=== PATIENT | female | born 1960 | race Caucasian/White ===

== ENCOUNTER 2018-05-11 15:00 | Emergency (ER) | payer MEDICARE, OTHER ==
[~2018-05-11] VITALS: Ht 167.6 cm; Wt 95.3 kg
[~2018-05-11 15:00] MED LIST: ADVAIR HFA 230M12 GM INH; AMITRIPTYLINE H25 M2 PO; AZITHROMYCIN 2250 MG PO; BACTRIM DS TAB1 EACH PO; CELEXA10 MG PO; CENTRUM SILVER1 EAC4 PO; L-THYROXINE; MACROBID 100 M100 M3 PO; MAGOX 400400 MG PO; NORCO 5-325 TA1 EACH PO; PHENERGAN 25 MG25 M1 PO; PRINIVIL20 MG PO; PROAIR HFA8.5 GM PO; SYNTHROID100 MCG PO; WELCHOL 625 MG625 MG PO; ZOFRAN ODT4 MG PO
[2018-05-11] MEDS ORDERED: ZANTAC 150MG T150 MG PO (15:05)
[2018-05-11 17:41] VITALS: BP 147/91
--- NOTE | 2018-05-12 13:54 | EKG ---
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 Bledsoe : 1960 Requested By: Rosalia Bond Order Number: [id number] MD: Ronnie Womack Measurements Intervals [place] Rate: 116 P: 68 OR: 141 QRS: 36 QRSD: 95 T: 40 QT: 318 QTc: 442 Interpretive Statements Sinus tachycardia Artifact in lead(s) I,III,aVR,aVL,aVF and baseline wander in lead(s) V1,V2,V4,V5,V6 Compared to ECG 05/22/2016 20:26:24 No significant changes Electronically Signed On 05-12-2018 13:54:04 CDT by Ronnie Womack [email or web address] <ELECTRONICALLY SIGNED> By: Ronnie Womack MD, FAC 05/12/18 1354 1511 1511 Ronnie Womack MD, FAC /EPI
== END 2018-05-11 17:41 | disposition home or self-care (01) ==
LOC: M.ERS 15:00
DX: S20.212A Contusion of left front wall of thorax, initial encounter (principal); S51.812A Laceration without foreign body of left forearm, initial encounter; M25.562 Pain in left knee; V89.0XXA Person injured in unspecified motor-vehicle accident, nontraffic, initial encounter; Y93.89 Activity, other specified; Y92.89 Other specified places as the place of occurrence of the external cause; Y99.8 Other external cause status; E03.9 Hypothyroidism, unspecified; J44.9 Chronic obstructive pulmonary disease, unspecified

== ENCOUNTER 2018-05-27 16:04 | Emergency (ER) | payer MEDICARE, OTHER ==
[~2018-05-27] VITALS: Ht 167.6 cm; Wt 95.3 kg
[~2018-05-27 16:04] MED LIST changes: +ZANTAC 150MG T150 MG PO
[2018-05-27] MEDS ORDERED: NORCO 5-325 TA1 EAC1 PO (17:06)
[2018-05-27] MEDS ORDERED: ZOFRAN4 MG PO (17:07)
[2018-05-27 17:33] VITALS: BP 126/85
== END 2018-05-27 17:34 | disposition home or self-care (01) ==
LOC: M.ERS 16:04
DX: S92.352A Displaced fracture of fifth metatarsal bone, left foot, initial encounter for closed fracture (principal); J44.9 Chronic obstructive pulmonary disease, unspecified; E03.9 Hypothyroidism, unspecified; Z88.5 Allergy status to narcotic agent; Z88.6 Allergy status to analgesic agent; Z88.0 Allergy status to penicillin; W01.0XXA Fall on same level from slipping, tripping and stumbling without subsequent striking against object, initial encounter; Y93.89 Activity, other specified; Y92.89 Other specified places as the place of occurrence of the external cause; Y99.8 Other external cause status